=== PATIENT | female | born 1950 | race African-American/Black ===

== ENCOUNTER 2022-04-17 20:25 | Inpatient (IN) | payer MEDICARE, OTHER ==
[~2022-04-17] VITALS: Ht 167.6 cm; Wt 64.4 kg
[2022-04-18] MEDS ORDERED: MORPHINE SULFATE INJ 2 MG/ml SYRG IV ONE (03:15)
[2022-04-18 05:03] LABS: Basophils # (auto) 0.1 10 ^3/uL (0-0.2); Basophils % (auto) 0.6 % (0.0-2.0); Eosinophils # (auto) 0 10 ^3/uL (0-0.8); Eosinophils % (auto) 0.1 % (0.0-7.0); Hematocrit 38.5 % (36.0-46.0); Hemoglobin 12.5 g/dL (12.2-16.2); Lymphocytes # (auto) 1.7 10 ^3/uL (0.4-5.4); Lymphocytes % (auto) 15.6 % (10.0-50.0); Mean Corpuscular Hemoglobin 28.5 pg (28.0-32.0); Mean Corpuscular Hgb Conc. 32.5 g/dL (32.0-36.0); Mean Corpuscular Volume 87.5 fL (80.0-100.0); Monocytes # (auto) 0.4 10 ^3/uL (0-1.3); Monocytes % (auto) 4.1 % (0.0-12.0); Neutrophils # (auto) 8.8 10 ^3/uL (1.6-8.6); Neutrophils % (auto) 79.6 % (37.0-80.0); Red Cell Distribution Width 12.7 % (11.8-14.3)
[2022-04-18 05:14] LABS: Calcium 8.8 mg/dL (8.5-10.1); Potassium 4.7 mmol/L (3.5-5.1)
[2022-04-18] MEDS ORDERED: ONDANSETRON HCL 4 MG/2 ML VIAL IV PRN (05:15)
[2022-04-18] MEDS ORDERED: DOCUSATE SOD 100 MG CAP PO PRN (05:15)
[2022-04-18 05:16] LABS: BUN/Creatinine Ratio 19.8
[2022-04-18 05:19] LABS: Bilirubin, Total 0.5 mg/dL (0.2-1.0); Total Protein 6.8 g/dL (6.4-8.2)
[2022-04-18] MEDS: SODIUM CHLORIDE 0.9% 1,000 ML IV SCH ×2 (06:42→21:40)
[2022-04-18 07:42] LABS: INR 1.17 (0.9-1.15)
[2022-04-18] MEDS: MORPHINE SULFATE INJ 2 MG/ml SYRG IV PRN (08:20)
[2022-04-18] MEDS ORDERED: DEXTROSE (50%) 50ML SYRG IV ONE (08:30)
[2022-04-18] MEDS ORDERED: LOSA-39 PO (10:12)
[2022-04-18] MEDS ORDERED: ACCU-CHEK COMFORT CURVE STRIP VI ONE (11:30)
[2022-04-18] MEDS ORDERED: InsuLIN REG 1unit/0.01ml Soln (100units/ml) SC ONE (11:30)
[2022-04-18] MEDS: LOSARTAN POTASSIUM 50 MG TAB PO SCH (12:05)
[2022-04-18 13:00] VITALS: BP 178/84
[2022-04-18 16:49] VITALS: BP 195/98
[2022-04-18] MEDS: hydrALAZINE HCL 20 MG/ML VL IV PRN (18:04)
[2022-04-18] MEDS ORDERED: DEXTROSE (50%) 50ML SYRG IV PRN (19:00)
[2022-04-18 22:00] VITALS: BP 153/87
[2022-04-18] MEDS: ACCU-CHEK COMFORT CURVE STRIP VI SCH (22:00)
[2022-04-18] MEDS: InsuLIN REG 1unit/0.01ml Soln (100units/ml) SC SCH (22:16)
[2022-04-18] MEDS ORDERED: LACTATED RINGER'S 1,000 ML IV SCH (23:00)
[2022-04-19 05:00] VITALS: BP_SYST 144; BP_SYST 166; BP_DIAS 66; BP_DIAS 83
[2022-04-19] MEDS: ACCU-CHEK COMFORT CURVE STRIP VI SCH ×4 (06:31→22:34)
[2022-04-19] MEDS: MORPHINE SULFATE INJ 2 MG/ml SYRG IV PRN (06:36)
[2022-04-19] MEDS: InsuLIN REG 1unit/0.01ml Soln (100units/ml) SC SCH ×4 (06:57→22:50)
[2022-04-19] MEDS ORDERED: ROPIVACAINE 0.5% (5MG/ML) 20ML AMPULE IJ ONE ×2 (07:01→08:57)
[2022-04-19] MEDS ORDERED: KETOROLAC TROMETH 30 MG/ML 1ML VIAL ONE ×2 (07:06→08:52)
[2022-04-19] MEDS ORDERED: VANCOMYCIN HCL 1000 MG VL ONE (07:07)
[2022-04-19] MEDS ORDERED: cefTRIAXone 1GM/50ML D5W 100 ML IV ONE (07:24)
[2022-04-19] MEDS ORDERED: EPINEPHrine HCL 1 MG/1 ML AMP ONE (07:57)
[2022-04-19] MEDS ORDERED: HYDROmorphone HCL 2 MG/ML VL/or syr ONE (07:58)
[2022-04-19] MEDS ORDERED: MIDAZOLAM HCL 2MG/2ML 2ml VIAL (1mg/ml) ONE (07:58)
[2022-04-19] MEDS ORDERED: TRANEXAMIC ACID 20 ML ONE (08:00)
[2022-04-19] MEDS ORDERED: ROCURONIUM 10MG/ML 10ML VIAL IV ONE (08:06)
[2022-04-19] MEDS ORDERED: MORPHINE SULF PF 5 MG/10 ML VIAL ONE (08:29)
[2022-04-19 08:46] VITALS: BP 143/69
[2022-04-19] MEDS ORDERED: ONDANSETRON HCL 4 MG/2 ML VIAL ONE (08:52)
[2022-04-19] MEDS ORDERED: ePHEDrine SULFATE 50 MG/ML AMP ONE (08:52)
[2022-04-19] MEDS ORDERED: GLYCOPYRROLATE 0.2 MG/ML 1ML VIAL ONE (08:55)
[2022-04-19] MEDS ORDERED: NEOSTIGMINE 1 MG/ML INJ (10mg/10ML VIAL) ONE (08:55)
[2022-04-19] MEDS: ceFAZolin 1GM/50ML 50 ML IV SCH ×3 (09:30→22:33)
[2022-04-19] MEDS ORDERED: LOSARTAN POTASSIUM 50 MG TAB PO SCH (10:00)
[2022-04-19] MEDS: LOSARTAN POTASSIUM 50 MG TAB PO SCH (10:00)
[2022-04-19] MEDS: ENOXAPARIN SOD 40 MG/0.4 ML SYRINGE SC SCH (10:00)
[2022-04-19] MEDS: LACTATED RINGER'S 1,000 ML IV SCH ×2 (11:29→19:30)
[2022-04-19] MEDS ORDERED: HYDROmorphone HCL 2 MG/ML VL/or syr IV PRN ×2 (12:00)
[2022-04-19] MEDS ORDERED: fentaNYL CITRATE 100 MCG/2 ML VL IV PRN (12:00)
[2022-04-19] MEDS ORDERED: ONDANSETRON HCL 4 MG/2 ML VIAL IV PRN (12:00)
[2022-04-19 16:41] VITALS: BP 139/50
[2022-04-19] MEDS: SODIUM CHLOR 0.9% PF (SALINE LOCK) 10ML VIAL/SYR IV SCH ×2 (16:50→22:34)
[2022-04-19] MEDS: HYDROcodone-ACET 5/325MG TAB PO PRN (17:09)
[2022-04-19 22:00] VITALS: BP 120/58
[2022-04-20 05:00] VITALS: BP 157/75
[2022-04-20] MEDS: LACTATED RINGER'S 1,000 ML IV SCH ×2 (05:30→15:30)
[2022-04-20] MEDS: SODIUM CHLOR 0.9% PF (SALINE LOCK) 10ML VIAL/SYR IV SCH ×3 (06:14→22:20)
[2022-04-20] MEDS: ACCU-CHEK COMFORT CURVE STRIP VI SCH ×4 (06:16→22:20)
[2022-04-20] MEDS: InsuLIN REG 1unit/0.01ml Soln (100units/ml) SC SCH ×4 (06:20→22:23)
[2022-04-20 06:21] LABS: Hematocrit 34.2 % (36.0-46.0); Hemoglobin 11.2 g/dL (12.2-16.2)
[2022-04-20] MEDS: hydrALAZINE HCL 20 MG/ML VL IV PRN (06:24)
[2022-04-20] MEDS: ACETAMINOPHEN 325 MG TAB PO PRN (08:12)
[2022-04-20 09:00] VITALS: BP 115/64
[2022-04-20] MEDS: LOSARTAN POTASSIUM 50 MG TAB PO SCH (10:41)
[2022-04-20] MEDS: ENOXAPARIN SOD 40 MG/0.4 ML SYRINGE SC SCH (10:41)
[2022-04-20] MEDS: MORPHINE SULFATE INJ 2 MG/ml SYRG IV PRN (11:05)
[2022-04-20 13:00] VITALS: BP 140/67
[2022-04-20 22:00] VITALS: BP 157/72
[2022-04-21] MEDS: LACTATED RINGER'S 1,000 ML IV SCH ×4 (03:35→23:13)
[2022-04-21] MEDS: ACETAMINOPHEN 325 MG TAB PO PRN (03:38)
[2022-04-21] MEDS: hydrALAZINE HCL 20 MG/ML VL IV PRN (03:39)
[2022-04-21 04:58] VITALS: BP 142/62
[2022-04-21] MEDS: SODIUM CHLOR 0.9% PF (SALINE LOCK) 10ML VIAL/SYR IV SCH ×3 (06:28→21:51)
[2022-04-21] MEDS: ACCU-CHEK COMFORT CURVE STRIP VI SCH ×4 (06:38→21:51)
[2022-04-21] MEDS: InsuLIN REG 1unit/0.01ml Soln (100units/ml) SC SCH ×4 (06:47→21:55)
[2022-04-21 07:33] LABS: Hematocrit 31.6 % (36.0-46.0); Hemoglobin 10.4 g/dL (12.2-16.2)
[2022-04-21 09:00] VITALS: BP 135/72
[2022-04-21] MEDS: ENOXAPARIN SOD 40 MG/0.4 ML SYRINGE SC SCH (09:23)
[2022-04-21] MEDS: LOSARTAN POTASSIUM 50 MG TAB PO SCH (09:23)
[2022-04-21] MEDS: HYDROcodone-ACET 5/325MG TAB PO PRN (10:20)
[2022-04-21 11:53] LABS: Basophils # (auto) 0.1 10 ^3/uL (0-0.2); Basophils % (auto) 0.5 % (0.0-2.0); Eosinophils # (auto) 0 10 ^3/uL (0-0.8); Eosinophils % (auto) 0.1 % (0.0-7.0); Hematocrit 29.2 % (36.0-46.0); Hemoglobin 9.5 g/dL (12.2-16.2); Lymphocytes # (auto) 1.5 10 ^3/uL (0.4-5.4); Lymphocytes % (auto) 12.8 % (10.0-50.0); Mean Corpuscular Hemoglobin 28.6 pg (28.0-32.0); Mean Corpuscular Hgb Conc. 32.3 g/dL (32.0-36.0); Mean Corpuscular Volume 88.5 fL (80.0-100.0); Monocytes # (auto) 1.2 10 ^3/uL (0-1.3); Monocytes % (auto) 9.7 % (0.0-12.0); Neutrophils # (auto) 9.1 10 ^3/uL (1.6-8.6); Neutrophils % (auto) 76.9 % (37.0-80.0); White Blood Cell 11.9 10^3/uL (4.4-10.8)
[2022-04-21 12:15] LABS: BUN/Creatinine Ratio 28.7; Calcium 7.8 mg/dL (8.5-10.1); Potassium 3.8 mmol/L (3.5-5.1)
[2022-04-21 12:25] LABS: Urine Bacteria NONE SEEN /hpf (None Seen); Urine Blood 3+ /uL (Negative); Urine Budding Yeast MANY /hpf (None Seen); Urine Mucus FEW (None Seen); Urine Specific Gravity 1.025 (1.001-1.035); Urine WBC 90 /hpf (0 - 5)
[2022-04-21 13:00] VITALS: BP 138/77
[2022-04-21] MEDS ORDERED: LACTULOSE 20Gm/30ML SOLN PO ONE (13:15)
[2022-04-21] MEDS ORDERED: cefTRIAXone 1GM/50ML D5W 50 ML IV ONE (13:15)
[2022-04-21 17:31] VITALS: BP 110/48
[2022-04-21] MEDS: DOCUSATE SOD 100 MG CAP PO SCH (21:52)
[2022-04-21 22:00] VITALS: BP 146/76
[2022-04-22 05:00] VITALS: BP 171/93
[2022-04-22 05:56] LABS: Basophils # (auto) 0 10 ^3/uL (0-0.2); Basophils % (auto) 0.5 % (0.0-2.0); Eosinophils # (auto) 0 10 ^3/uL (0-0.8); Eosinophils % (auto) 0.3 % (0.0-7.0); Hematocrit 30.4 % (36.0-46.0); Hemoglobin 10.2 g/dL (12.2-16.2); Lymphocytes # (auto) 1.1 10 ^3/uL (0.4-5.4); Mean Corpuscular Hgb Conc. 33.4 g/dL (32.0-36.0); Mean Corpuscular Volume 86.8 fL (80.0-100.0); Monocytes # (auto) 0.8 10 ^3/uL (0-1.3); Monocytes % (auto) 8.4 % (0.0-12.0); Neutrophils % (auto) 79.8 % (37.0-80.0); Red Cell Distribution Width 12.8 % (11.8-14.3)
[2022-04-22 06:22] LABS: BUN/Creatinine Ratio 30.7; Calcium 7.9 mg/dL (8.5-10.1); Potassium 3.8 mmol/L (3.5-5.1)
[2022-04-22] MEDS: InsuLIN REG 1unit/0.01ml Soln (100units/ml) SC SCH ×4 (07:00→21:44)
[2022-04-22] MEDS: SODIUM CHLOR 0.9% PF (SALINE LOCK) 10ML VIAL/SYR IV SCH ×3 (07:02→21:41)
[2022-04-22] MEDS: ACCU-CHEK COMFORT CURVE STRIP VI SCH ×4 (07:03→21:42)
[2022-04-22] MEDS: HYDROcodone-ACET 5/325MG TAB PO PRN (07:08)
[2022-04-22] MEDS: hydrALAZINE HCL 20 MG/ML VL IV PRN (07:08)
[2022-04-22 09:00] VITALS: BP 142/69
[2022-04-22] MEDS: cefTRIAXone 1GM/50ML D5W 50 ML IV SCH (09:08)
[2022-04-22] MEDS: ENOXAPARIN SOD 40 MG/0.4 ML SYRINGE SC SCH (09:09)
[2022-04-22] MEDS: LOSARTAN POTASSIUM 50 MG TAB PO SCH (09:09)
[2022-04-22] MEDS: DOCUSATE SOD 100 MG CAP PO SCH ×2 (09:09→21:46)
[2022-04-22 13:00] VITALS: BP 139/68
[2022-04-22] MEDS ORDERED: MORPHINE SULFATE INJ 2 MG/ml SYRG IV PRN (14:30)
[2022-04-22 17:00] VITALS: BP 126/58
[2022-04-22] MEDS: Glucerna Carbsteady SHAKE Vanilla 8oz PO SCH (18:13)
[2022-04-22 22:00] VITALS: BP 152/78
[2022-04-23] MEDS ORDERED: NEBI2.5T3 (03:28)
[2022-04-23] MEDS ORDERED: LOSA-39 PO (03:28)
[2022-04-23] MEDS: hydrALAZINE HCL 20 MG/ML VL IV PRN (04:30)
[2022-04-23] MEDS: HYDROcodone-ACET 5/325MG TAB PO PRN ×3 (04:38→17:36)
[2022-04-23 05:00] VITALS: BP 181/85
[2022-04-23] MEDS: SODIUM CHLOR 0.9% PF (SALINE LOCK) 10ML VIAL/SYR IV SCH ×2 (05:30→14:00)
[2022-04-23] MEDS: ACCU-CHEK COMFORT CURVE STRIP VI SCH ×3 (06:27→17:00)
[2022-04-23] MEDS: InsuLIN REG 1unit/0.01ml Soln (100units/ml) SC SCH ×3 (06:28→17:00)
[2022-04-23] MEDS: cefTRIAXone 1GM/50ML D5W 50 ML IV SCH (08:51)
[2022-04-23] MEDS: Glucerna Carbsteady SHAKE Vanilla 8oz PO SCH ×3 (08:52→17:36)
[2022-04-23 09:00] VITALS: BP 180/64
[2022-04-23] MEDS: DOCUSATE SOD 100 MG CAP PO SCH (10:00)
[2022-04-23] MEDS: ENOXAPARIN SOD 40 MG/0.4 ML SYRINGE SC SCH (10:02)
[2022-04-23] MEDS: LOSARTAN POTASSIUM 50 MG TAB PO SCH (10:03)
[2022-04-23 13:00] VITALS: BP 152/72
[2022-04-23 17:00] VITALS: BP 152/76
[2022-04-23 18:21] VITALS: BP 152/76
== END 2022-04-23 18:37 | DRG 522 ==
LOC: ER 20:25 → EDBD 20:25 → OVERFLOW 04-18 05:15 → WEST WING 04-18 10:38
PROVIDERS: ADMIT Hospitalist; ATTEND Internal Medicine
PROC: 8E0YXBZ Computer Assisted Procedure of Lower Extremity (ICD-10-PCS; 2022-04-19)
PROC: 0SR90JZ Replacement of Right Hip Joint with Synthetic Substitute, Open Approach (ICD-10-PCS; principal; 2022-04-19 08:01)
DX: S72.091A Other fracture of head and neck of right femur, initial encounter for closed fracture (principal); N39.0 Urinary tract infection, site not specified; I10 Essential (primary) hypertension; W01.0XXA Fall on same level from slipping, tripping and stumbling without subsequent striking against object, initial encounter; D64.9 Anemia, unspecified; Z20.822 Contact with and (suspected) exposure to COVID-19; Y93.89 Activity, other specified; Y92.098 Other place in other non-institutional residence as the place of occurrence of the external cause; Y99.8 Other external cause status; Z88.8 Allergy status to other drugs, medicaments and biological substances; E11.65 Type 2 diabetes mellitus with hyperglycemia
CPT/HCPCS: 36415; 71045; 72170; 72192; 73700; 80048; 80053; 81001; 82962; 83036; 85014; 85018; 85025; 85610; 86850; 86900; 86901; 87086; 87088; 93005; 96361; 96374; 96375; 97110; 97116; 97163; 97530; G0378; J0171; J0690; J0696; J1815; J1885; J2250; J2405